=== PATIENT | female | born 1980 | race Caucasian/White ===

== ENCOUNTER 2018-10-18 19:48 | Emergency (ER) | payer MEDICAID ==
[~2018-10-18] VITALS: Ht 160 cm; Wt 65.8 kg
[~2018-10-18 19:48] MED LIST: CALC500T2 PO; PREN-385 PO
[2018-10-18 19:53] VITALS: BP 126/80
--- NOTE | 2018-10-18 19:57 | NUR ---
PT AMBULATED TO BED 1. PROVIDING URINE.
--- NOTE | 2018-10-18 20:16 | NUR ---
37 y/o f presented to ED with LLQ pain. pain is 7/10, aching in nature. abdomen tender to touch. pain does not radiate. denies n/v/d. denies flank pain, hematuria. ERMD notified. Will continue to monitor.
[2018-10-18] MEDS ORDERED: KETOROLAC 60 MG/2 ML VIAL IM ONE (20:45)
[2018-10-18 21:18] VITALS: BP 126/80
--- NOTE | 2018-10-18 21:18 | NUR ---
Patient discharged with v/s stable. Written and verbal after care instructions given and explained. Patient alert, oriented and verbalized understanding of instructions. Ambulatory with steady gait. All questions addressed prior to discharge. ID band removed. Patient advised to follow up with PMD. Rx of IBUPROFEN WAS given. Patient educated on indication of medication including possible reaction and side effects. Opportunity to ask questions provided and answered.
== END 2018-10-18 21:18 | disposition home or self-care (01) ==
LOC: MED 19:48
DX: R10.32 Left lower quadrant pain (principal); Z79.899 Other long term (current) drug therapy; Z88.1 Allergy status to other antibiotic agents
CPT/HCPCS: 81002; 81025; 99282; J1885

== ENCOUNTER 2021-05-10 11:16 | Emergency (ER) | payer MEDICAID ==
[~2021-05-10] VITALS: Ht 157.5 cm; Wt 70.3 kg
[2021-05-10 11:39] VITALS: BP 136/77
--- NOTE | 2021-05-10 11:49 | NUR ---
PT C/O LEFT SIDED ABDOMINAL PAIN X1 WEEK , STATES LLQ RADIATING TO UPPER. DENIES N/V. PENDING ER MD DICKINSON.
[2021-05-10 12:33] LABS: BASOPHILS % (AUTO) 0.3 % (0.0-2.0); EOSINOPHILS # (AUTO) 0.3 K/uL (0-0.4); EOSINOPHILS % (AUTO) 3.4 % (0.0-4.0); HEMATOCRIT 41.9 % (36-48); HEMOGLOBIN 14.2 g/dL (12.0-16.0); LYMPHOCYTES # (AUTO) 1.9 K/uL (2.5-16.5); MEAN CORPUSCULAR HEMOGLOBIN 30 pg (27-31); MEAN CORPUSCULAR HGB CONC 34 g/dL (33-37); MEAN CORPUSCULAR VOLUME 87.8 fL (80-94); MONOCYTES # (AUTO) 0.5 K/uL (0.8-1.0); MONOCYTES % (AUTO) 6.7 % (1.7-9.3); NEUTROPHILS % (AUTO) 64.6 % (42.2-75.2); PLATELET COUNT (AUTO) 199 K/uL (140-450); RED BLOOD CELL COUNT(AUTO) 4.77 MIL/uL (4.20-5.40); RED CELL DISTRIBUTION WIDTH 13.1 % (11.6-13.7); WHITE BLOOD COUNT (AUTO) 7.7 K/uL (4.8-10.8)
[2021-05-10 12:50] LABS: ALBUMIN 3.8 g/dL (3.4-5.0); ANION GAP 12.3 (8-16); CARBON DIOXIDE 27.6 mmol/L (21-32); CREATININE 0.7 mg/dL (0.6-1.3); POTASSIUM 3.9 mmol/L (3.5-5.1); TOTAL BILIRUBIN 0.7 mg/dL (0.0-1.0)
[2021-05-10 13:33] LABS: APPEARANCE,URINE CLEAR (CLEAR); BILIRUBIN,URINE NEGATIVE (NEGATIVE); BLOOD, URINE NEGATIVE (NEGATIVE); COLOR,URINE YELLOW (YELLOW); LEUKOCYTE ESTERASE ,URINE NEGATIVE (NEGATIVE); NITRITE, URINE NEGATIVE (NEGATIVE); UGLUCOSE NEGATIVE (NEGATIVE)
[2021-05-10] MEDS ORDERED: KETOROLAC 15 MG/ML VIAL IVP ONE (13:45)
[2021-05-10] MEDS ORDERED: ALUMINUM HYD/MAG/SIMETHICONE 30 ML UDC PO ONE (13:45)
[2021-05-10 14:02] VITALS: BP 109/79
--- NOTE | 2021-05-10 14:02 | NUR ---
medicated per pt, tolerated well. no acute distress noted. stable on dc.
--- NOTE | 2021-05-10 14:27 | NUR ---
pt verbalizes dc instructions. no acute distress noted. stable on dc
[2021-05-10] MEDS ORDERED: TOMOMETER 1 DEV DEV MC ONE (15:24)
== END 2021-05-10 14:27 | disposition home or self-care (01) ==
LOC: MED 11:16
DX: R10.12 Left upper quadrant pain (principal); Z79.899 Other long term (current) drug therapy; Z88.1 Allergy status to other antibiotic agents
CPT/HCPCS: 36415; 80053; 81003; 81025; 83690; 84703; 85025; 96374; 99283; J1885

== ENCOUNTER 2021-07-15 19:21 | Emergency (ER) | payer MEDICAID ==
[~2021-07-15] VITALS: Ht 157.5 cm; Wt 74.4 kg
[2021-07-15 19:32] VITALS: BP 139/88
--- NOTE | 2021-07-15 19:35 | NUR ---
pt given urine cup and ambulated to lobby
[2021-07-15 20:57] LABS: BASOPHILS % (AUTO) 0.2 % (0.0-2.0); EOSINOPHILS # (AUTO) 0.3 K/uL (0-0.4); EOSINOPHILS % (AUTO) 2.3 % (0.0-4.0); HEMOGLOBIN 15.2 g/dL (12.0-16.0); LYMPHOCYTES # (AUTO) 2.1 K/uL (2.5-16.5); LYMPHOCYTES % (AUTO) 17.5 % (20.5-51.1); MEAN CORPUSCULAR HEMOGLOBIN 30 pg (27-31); MEAN CORPUSCULAR HGB CONC 35 g/dL (33-37); MONOCYTES # (AUTO) 0.7 K/uL (0.8-1.0); MONOCYTES % (AUTO) 5.5 % (1.7-9.3); NEUTROPHILS # (AUTO) 8.9 K/uL (1.8-7.7); NEUTROPHILS % (AUTO) 74.5 % (42.2-75.2); PLATELET COUNT (AUTO) 231 K/uL (140-450); RED BLOOD CELL COUNT(AUTO) 5.05 MIL/uL (4.20-5.40); RED CELL DISTRIBUTION WIDTH 13.2 % (11.6-13.7)
[2021-07-15 21:07] LABS: APPEARANCE,URINE CLEAR (CLEAR); BILIRUBIN,URINE NEGATIVE (NEGATIVE); BLOOD, URINE NEGATIVE (NEGATIVE); COLOR,URINE YELLOW (YELLOW); LEUKOCYTE ESTERASE ,URINE NEGATIVE (NEGATIVE); NITRITE, URINE NEGATIVE (NEGATIVE); UGLUCOSE NEGATIVE (NEGATIVE)
[2021-07-15 21:19] LABS: ALBUMIN 4.1 g/dL (3.4-5.0); ANION GAP 12.9 (8-16); CARBON DIOXIDE 26.8 mmol/L (21-32); CREATININE 0.8 mg/dL (0.6-1.3); POTASSIUM 3.7 mmol/L (3.5-5.1); TOTAL BILIRUBIN 0.5 mg/dL (0.0-1.0)
[2021-07-15] MEDS ORDERED: DOCUSATE SODIUM 100 MG GELCAP PO STA (21:36)
[2021-07-15] MEDS ORDERED: LACTULOSE 20 GM/30 ML UDC PO ONE (21:40)
[2021-07-15] MEDS ORDERED: SENN-72 PO (21:42)
[2021-07-15] MEDS ORDERED: PSYL0.4C2 PO (21:42)
[2021-07-15] MEDS ORDERED: MIRABULK PO (21:42)
[2021-07-15] MEDS ORDERED: NA P133N16 RC (21:47)
--- NOTE | 2021-07-15 22:03 | NUR ---
Patient discharged with v/s stable. Written and verbal after care instructions given and explained. Patient alert, oriented and verbalized understanding of instructions. Ambulatory with steady gait. All questions addressed prior to discharge. ID band removed. Patient advised to follow up with PMD. Rx of enema, miralax, senna, metamucil given. Patient educated on indication of medication including possible reaction and side effects. Opportunity to ask questions provided and answered.
== END 2021-07-15 22:03 | disposition home or self-care (01) ==
LOC: MED 19:21
DX: K59.00 Constipation, unspecified (principal); Z79.899 Other long term (current) drug therapy; Z88.1 Allergy status to other antibiotic agents
CPT/HCPCS: 36415; 74018; 80053; 81003; 83690; 85025; 99284